=== PATIENT | male | born 1990 | race Hispanic/Latino ===

== ENCOUNTER 2018-09-04 18:04 | Emergency (ER) | payer SELFPAY ==
[2018-09-04] MEDS ORDERED: Lidocaine 1% w/Epinephrine 1:100K 20 ML VIAL ONE (19:23)
[2018-09-04] MEDS ORDERED: Adacel (T-DAP) 0.5 ML SYRINGE ONE (19:23)
--- NOTE | 2018-09-04 19:33 | RAD ---
FEXAM: Left hand radiographs 3 views PROVIDED CLINICAL HISTORY: Laceration FINDINGS: There is no evidence for fracture or other acute osseous abnormality. Alignment appears anatomic. Abby nt spaces appear preserved. No evidence for radiopaque foreign body. IMPRESSION: No evidence for an acute osseous abnormality. If there is persistent clinical concern, conservative m anagement and follow-up imaging advised.
== END 2018-09-04 20:38 | disposition home or self-care (01) ==
LOC: ERS 18:04
DX: S56.322A Laceration of extensor or abductor muscles, fascia and tendons of left thumb at forearm level, initial encounter (principal); F17.210 Nicotine dependence, cigarettes, uncomplicated; W26.0XXA Contact with knife, initial encounter
CPT/HCPCS: 12002; 90471; 90715; J2001